=== PATIENT | male | born 2000 | race Two or more races ===

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

== ENCOUNTER 2018-02-14 19:44 | Emergency (ER) | payer SELFPAY ==
[~2018-02-14] VITALS: Ht 175.3 cm; Wt 95.7 kg
[~2018-02-14 19:44] MED LIST changes: +CIPR500T94 PO
[2018-02-14 20:00] VITALS: BP 144/80
--- NOTE | 2018-02-14 20:05 | PHYS DOC ---
Past Medical History Past Medical History: No Pertinent History Past Surgical History: No Surgical History Alcohol Use: None Drug Use: None Adult General Chief Complaint Chief Complaint: COUGH HPI HPI 18-year-old male presents for evaluation of nonproductive cough. He denies fevers. reports history of asthma. Review of Systems Review of Systems Constitutional: Denies fever or chills [] Eyes: Denies change in visual acuity, redness, or eye pain [] HENT: Denies nasal congestion or sore throat [] Respiratory: Denies cough or shortness of breath [] Cardiovascular: No additional information not addressed in HPI [] GI: Denies abdominal pain, nausea, vomiting, bloody stools or diarrhea [] : Denies dysuria or hematuria [] Musculoskeletal: Denies back pain or joint pain [] Integument: Denies rash or skin lesions [] Neurologic: Denies headache, focal weakness or sensory changes [] Endocrine: Denies polyuria or polydipsia [] All other systems were reviewed and found to be within normal limits, except as documented in this note. Allergies Allergies Allergies Coded Allergies Type Severity Reaction Last Updated Verified No Known Drug Allergies 02/01/16 No Physical Exam Physical Exam Constitutional: Well developed, well nourished, no acute distress, non-toxic appearance. [] HENT: Normocephalic, atraumatic, bilateral external ears normal, oropharynx moist, no oral exudates, nose normal. [] Eyes: PERRLA, EOMI, conjunctiva normal, no discharge. [] Neck: Normal range of motion, no tenderness, supple, no stridor. [] Cardiovascular:Heart rate regular rhythm, no murmur [] Lungs & Thorax: Bilateral breath sounds clear to auscultation [] Abdomen: Bowel sounds normal, soft, no tenderness, no masses, no pulsatile masses. [] Skin: Warm, dry, no erythema, no rash. [] Back: No tenderness, no CVA tenderness. [] Extremities: No tenderness, no cyanosis, no clubbing, ROM intact, no edema. [] Neurologic: Alert and oriented X 3, normal motor function, normal sensory function, no focal deficits noted. [] Psychologic: Affect normal, judgement normal, mood normal. [] Current Patient Data Vital Signs Vital Signs Date Time Temp Pulse Resp B/P (MAP) Pulse Ox O2 Delivery O2 Flow Rate FiO2 02/14/18 20:00 98.3 73 18 144/80 (101) 96 Room Air 98.3 EKG EKG [] Radiology/Procedures Radiology/Procedures Chest x-ray read by myself is negative Patient has history of asthma, will treat with prednisone, close follow-up with primary care doctor in 2-3 days, return to ER for new or worsening symptoms.[] Course & Med Decision Making Course & Med Decision Making Pertinent Labs and Imaging studies reviewed. (See chart for details) []Chest x-ray is negative for acute pathology. With history of asthma, will treat with prednisone. Patient to continue using his inhaler. Does not need a refill. Follow up with primary care doctor. Return to ER for new or worsening symptoms. Dragon Disclaimer Dragon Disclaimer This electronic medical record was generated, in whole or in part, using a voice recognition dictation system. Departure Departure Impression: Primary Impression: Cough Disposition: 01 HOME, SELF-CARE Condition: GOOD Referrals: NO PCP (PCP) Patient Instructions: Cough, Adult Scripts Prednisone (PREDNISONE) 50 Mg Tablet 1 TAB PO DAILY, #5 TAB 0 Refills Prov: CITLALY QUIROZ APRN 02/14/18 CITLALY QUIROZ APRN Feb 14, 2018 20:05
[2018-02-14] MEDS ORDERED: PRED50TA PO (20:56)
--- NOTE | 2018-02-15 02:26 | RAD ---
Chest, PA and Lateral: Technique: PA and lateral views of the chest were obtained. History: Asthma, shortness of breath. Comparison: 07/08/2012. Findings: The heart and pulmonary vasculature appear within normal limits. The lungs are clear. The pleural margins are clear. Impression: No acute chest process is seen. Electronically signed by: Haris Hutton MD (02/15/2018 2:22 AM) [facility]
== END 2018-02-14 21:10 | disposition home or self-care (01) ==
LOC: ER 19:44
DX: R05 Cough (principal); J45.909 Unspecified asthma, uncomplicated
CPT/HCPCS: 71046; 99284

== ENCOUNTER 2019-03-15 18:22 | Emergency (ER) | payer OTHER ==
[~2019-03-15] VITALS: Ht 175.3 cm; Wt 94.8 kg
[~2019-03-15 18:22] MED LIST changes: +PRED50TA PO
[2019-03-15 19:54] VITALS: BP 159/69
[2019-03-15] MEDS ORDERED: IBUPROFEN 400 MG TABLET. PO ONE (21:00)
[2019-03-15] MEDS ORDERED: ACETAMINOPHEN 500 MG TABLET PO ONE (21:00)
[2019-03-15] MEDS ORDERED: AMOX500T PO (21:14)
--- NOTE | 2019-03-15 21:14 | PHYS DOC ---
Past Medical History Past Medical History: Asthma Past Surgical History: No Surgical History Alcohol Use: Rarely Drug Use: None Adult General Chief Complaint Chief Complaint: SORE THROAT [facility] HPI Patient is a 19 year old male accompanied by his family, who presents to the emergency department with complaints of a sore throat, bodyaches, and fever for the last three days. Today his R ear began to also hurt. Currently, he rates his pain 8/10 on the pain scale, he denies any alleviating or exacerbating factors. He denies any abdominal pain, nausea, vomiting, diarrhea, nasal congestion, cough, shortness of breath, or wheezing. Patient states that he last took 400 mg of ibuprofen at 1800, he denies taking any Tylenol today. All other ROS is negative unless otherwise documented in HPI. Review of Systems Review of Systems See Above Current Medications Current Medications Current Medications Medications (Trade) Dose Ordered Sig/Joann Start Time Stop Time Status Last Admin Dose Admin Acetaminophen (Tylenol) 1,000 mg 1X ONCE 03/15/19 21:00 03/15/19 21:01 DC 03/15/19 20:51 1,000 MG Ibuprofen (Motrin) 400 mg 1X ONCE 03/15/19 21:00 03/15/19 21:01 DC 03/15/19 20:51 400 MG Allergies Allergies Allergies Coded Allergies Type Severity Reaction Last Updated Verified No Known Drug Allergies 02/01/16 No Physical Exam Physical Exam See Above Constitutional: Well developed, well nourished, no acute distress, ill appearance, obese. [] HENT: Normocephalic, atraumatic, bilateral external ears normal, bilateral TMs normal, erythema of posterior pharynx with 2+ tonsils with while exudate bilaterally,oropharynx moist, nose normal. [] Eyes: PERRLA, EOMI, conjunctiva normal, no discharge. [] Neck: Normal range of motion, bilateral anterior chain lymph node enlargement and TTP, no stridor. [] Cardiovascular:Heart rate regular tachycardic rhythm, no murmur [] Lungs & Thorax: Bilateral breath sounds clear to auscultation [] Skin: flushed, hot, dry, no rash. [] Back: No tenderness, no CVA tenderness. [] Extremities: No cyanosis, no clubbing, ROM intact, no edema. [] Neurologic: Alert and oriented X 3, no focal deficits noted. [] Psychologic: Affect normal, judgement normal, mood normal. [] Current Patient Data Vital Signs Vital Signs Date Time Temp Pulse Resp B/P (MAP) Pulse Ox O2 Delivery O2 Flow Rate FiO2 03/15/19 19:54 103.0 130 24 159/69 (99) 96 Room Air 103.0 EKG EKG [] Radiology/Procedures Radiology/Procedures [] Course & Med Decision Making Course & Med Decision Making Pertinent Labs and Imaging studies reviewed. (See chart for details) dx: acute pharyngitis, fever patient was given an additional 400 mg of ibuprofen and 1 g of Tylenol in the emergency department. Will treat patient for strep pharyngitis based off of physical exam findings and [facility] criteria. A prescription for amoxicillin 500 mg PO BID times 10 days was written. Patient instructed follow-up with primary care doctor in 1 to 2 days. Return to the ER if symptoms worsen. Patient was also advised to not take naproxen and ibuprofen at the same time as they are both NSAIDs Pt verbalized an understanding of discharge, medications, follow-up, home care, and return to ED precautions, was in agreement with POC. [] Dragon Disclaimer Dragon Disclaimer This electronic medical record was generated, in whole or in part, using a voice recognition dictation system. Departure Departure Impression: Primary Impression: Pharyngitis, acute Additional Impression: Fever Disposition: 01 HOME, SELF-CARE Condition: STABLE Referrals: NO PCP (PCP) Patient Instructions: Fever, Adult, [id number], Viral and Bacterial Pha ryngitis, [id number] Additional Instructions: Fill prescription and use as directed. Recommend warm salt water gargles as needed for relief of discomfort. Alternate Tylenol and ibuprofen as needed for fever/pain. Discard your toothbrush tomorrow and begin using a new toothbrush. Follow-up with primary care doctor if symptoms persist. Return to the ER if sy mptoms worsen. Scripts Amoxicillin (AMOXICILLIN) 500 Mg Tablet 1 TAB PO BID for 10 Days, #20 TAB 0 Refills Prov: SANDRATERRYDENNIS APRN 03/15/19 Problem Qualifiers Primary Impression: Pharyngitis, acute Pharyngitis/tonsillitis etiology: unspecified etiology Qualified Codes: J02.9 - Acute pharyngitis, unspecified Additional Impression: Fever Fever type: unspecified Qualified Codes: R50.9 - Fever, unspecified DENNIS DIALLO [employer] Mar 15, 2019 21:14
== END 2019-03-15 21:25 | disposition home or self-care (01) ==
LOC: ER 18:22
DX: J02.9 Acute pharyngitis, unspecified (principal); R50.9 Fever, unspecified; J45.909 Unspecified asthma, uncomplicated
CPT/HCPCS: 99283